=== PATIENT | male | born 1980 | race Caucasian/White ===

== ENCOUNTER → 2020-09-04 | Outpatient (CLI) | payer BC, OTHER ==
[~2020-09-04] MED LIST: ISOVUE-300 61% 50ML VIAL As Ordered ONE; PROHANCE 279.3MG/ML 5ML VIAL As Ordered ONE
--- NOTE | 2020-09-04 08:59 | REP ---
INDICATION: PAIN IN LT HIP. COMPARISON: None. TECHNIQUE: Precontrast imaging includes coronal T1 and T2-weighted scans of both hips. Precontrast high-resolution smaller field of view axial, coronal and sagittal T2 fat sat images are acquired of the left hip. The injection procedure is performed and dictated separately. Postcontrast T1 fat sat images are acquired in all 3 planes. FINDINGS: Cortical and medullary bone signal intensity are normal in the proximal femurs bilaterally. There is no evidence of avascular necrosis. The visualized bony pelvic ring appears intact. There is no evidence of pelvic mass or adenopathy. No significant hip joint effusion is seen on either side. No periarticular cyst or mass is observed. There is a small sliver of fluid adjacent to each greater trochanter, right a little more prominent than left which may reflect mild bursitis. There is good filling and enhancement of the left hip articulation after the injection. 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 However, the superior labral cartilage appears intact with no arthrographic evidence of tear. Ligamentum flavum is intact. No loose body is appreciated. Articular cartilage is unremarkable. The ischial femoral interval is normal. Hamstring tendon insertion is unremarkable. 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 However, there is no MR arthrographic evidence of associated labral cartilage disruption. There are small Briana trochanteric bursal fluid collections bilaterally. Right larger than left. Otherwise negative. <Electronically signed by Silverio Arriaza > 09/04/20 [id number]
--- NOTE | 2020-09-04 17:34 | REP ---
INDICATION: PAIN IN LT HIP. COMPARISON: None. TECHNIQUE: The procedure was performed under the direction supervision of Dr. Arriaza. The benefits and risks including but not limited to pain, infection, bleeding and anaphylaxis were explained to the patient and informed consent was obtained. The left femoral neck was localized using fluoroscopic guidance. Skin was prepped and draped in a sterile fashion. 1% lidocaine was used as a local anesthetic. Using fluoroscopic guidance a 22 gauge spinal needle was inserted and advanced to the femoral neck. 0.5 ml of Isovue-300 was injected to verify placement. 11 ml of a solution containing 20 ml of sterile saline and 0.15 ml of ProHance was injected into the joint. The needle was removed and the patient was taken to MRI for postprocedural imaging. The patient tolerated the procedure well and there were no immediate complications. Less than 6 seconds of fluoro time was utilized for this procedure. FINDINGS: None IMPRESSION: Left hip injection for MRI arthrogram. <Electronically signed by Geovany Carolina > 09/04/20 [id number] <Electronically signed by Silverio Arriaza > 09/04/20 [id number]
== END ==
LOC: M RADPRO 06:21
PROVIDERS: ATTEND Orthopaedic Surgery
DX: M25.552 Pain in left hip (principal); M89.8X5 Other specified disorders of bone, thigh
CPT/HCPCS: 27093; 73723; 77002; A9576; Q9967

== ENCOUNTER → 2020-11-16 | Outpatient (CLI) | payer BC, OTHER ==
--- NOTE | 2020-11-16 12:25 | REPVR ---
PROCEDURE INFORMATION: Exam: MR Lumbar Spine Without Contrast Exam date and time: 11/16/2020 11:44 AM Age: 40 years old Clinical indication: Low back pain TECHNIQUE: Imaging protocol: Multiplanar magnetic resonance images of the lumbar spine without intravenous contrast. COMPARISON: No relevant prior studies available. 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 There is S1 vertebral hemangioma. Otherwise marrow signal appears unremarkable. Vertebral body heights normal. There is disc desiccation at T12-L1 and L3-L4 through L5-S1. Spinal cord: Conus terminates at T12-L1 and appears normal in signal intensity without intrinsic or extrinsic lesion. T12-L1: Sagittal images only. There is a central disc protrusion which extends slightly above and below the disc space level. L1-L2: There is no significant disc bulge. There is mild facet degeneration. There is no significant spinal stenosis. There is no significant neural foraminal narrowing. L2-L3: There is mild disc bulge. There is mild facet degeneration. There is no significant spinal stenosis. There is no significant neural foraminal narrowing. L3-L4: There is moderate disc bulge. There is mild facet degeneration. There is mild spinal stenosis. There is mild medial right and no significant left neural foraminal narrowing. L4-L5: There is moderate to large disc bulge. There is moderate facet degeneration. There is moderate bilateral L5 subarticular recesses narrowing and spinal stenosis. There is mild right and moderate left neural foraminal narrowing involving medial aspect of neural foramen. L5-S1: There is moderate disc bulge and a broad-based central disc protrusion with mild narrowing of superior aspect of S1 subarticular recesses. There is no significant facet degeneration. There is no significant spinal stenosis. There is [id number] medial bilateral neural foraminal narrowing. Soft tissues: Unremarkable. IMPRESSION: Degenerative changes as described. Moderate spinal stenosis at L4-L5. Mild spinal stenosis at L3-L4. [id number] neural foraminal narrowing as described at L3-L4 through L5-S1. Electronically signed by: Nataliya Espinoza On 11/16/2020 12:25:14 PM
== END ==
LOC: M RAD 10:51
PROVIDERS: ATTEND Orthopaedic Surgery
DX: M54.5 Low back pain (principal)